=== PATIENT | female | born 1955 | race Caucasian/White ===

== ENCOUNTER → 2017-05-11 | Outpatient (CLI) | payer MEDICAID ==
--- NOTE | 2017-05-17 23:04 | RADIOLOGY REPORT PS360 ---
DIG MAMM-SCREEN [facility] W/CAD CAD Screening ORDERING PHYSICIAN : PEBBLES BARRIOS PATIENT AGE: 61 years GENDER: Female COMPARISON: Previous mammograms: July 2012 and July 2010 digital mammograms INDICATION: Routine screening 61-year-old with no hormones no new complaints noncontributory family history TECHNIQUE: Standard CC and MLO images were obtained. R2 CAD reviewed. Additional axillary cc views both breasts. FINDINGS: Scattered mi mild to moderate, fibroglandular elements bilaterally with no dominant mass nor suspicious calcification. Scattered benign calcifications. RIGHT BREAST: Additional axillary cc view is helpful and areas of density dissipate on this distal view. No new areas concern right breast. Slight progression of the benign scattered calcifications bilaterally. These are slightly more numerous at the right breast but can be followed safely LEFT BREAST: Left breast appears stable as well similar parenchymal pattern. IMPRESSION: Stable bilateral mammogram BI-RADS CATEGORY: 1_Negative RECOMMENDED FOLLOWUP: 12M 12 MONTH FOLLOW-UP (A letter has been sent to the patient regarding results of the study.)
== END ==
LOC: RAD 08:54
DX: Z12.31 Encounter for screening mammogram for malignant neoplasm of breast (principal)
CPT/HCPCS: G0202

== ENCOUNTER → 2017-08-02 | Outpatient (CLI) | payer MEDICAID ==
[2017-08-02 16:21] LABS: HEMOGLOBIN 11.8 g/dL (12.2-16.2); LYMPH % 29.9 % (10-50.0)
[2017-08-02 18:47] LABS: BUN 11 mg/dL (7-18); GFR (ESTIMATED) 73 ML/MIN (59-)
[2017-08-04 09:39] LABS: Iron 90 ug/dL (27-139); Iron Saturation 29 % (15-55); UIBC 219 ug/dL (118-369)
== END ==
LOC: LAB 15:37
PROVIDERS: Physician Assistant
DX: D50.9 Iron deficiency anemia, unspecified (principal); E78.5 Hyperlipidemia, unspecified